=== PATIENT | female | born 1950 | race Caucasian/White ===

== ENCOUNTER 2019-12-30 01:16 | Observation (INO) ==
[2019-12-30] MEDS ORDERED: Ondansetron 4 MG/2 ML VIAL IVP PRN (06:01)
[2019-12-30] MEDS ORDERED: Naloxone 0.4 MG/ML INJ IVP PRN (06:01)
[2019-12-30] MEDS ORDERED: Acetaminophen 325 MG TABLET PO PRN (06:01)
[2019-12-30] MEDS ORDERED: Ipratropium/Albuterol Neb 3 ML IH PRN (07:18)
[2019-12-30 08:18] LABS: Basophils % 0.1 %; Eosinophils # 0.1 K/mcL (0.0-0.6); Eosinophils % 0.8 %; Hemoglobin 16.1 g/dL (11.5-15.4); Immature Granulocytes % 0.4 % (0-4); Lymphocytes # 1.2 K/mcL (0.6-4.6); Lymphocytes % 13.9 %; Mean Corpuscular HGB Conc 32.9 g/dL (31.6-35.5); Mean Corpuscular Hemoglobin 33.1 pg (28.0-33.3); Mean Corpuscular Volume 100.6 fL (83.0-100.0); Mean Platelet Volume 9.3 fL (9.4-12.4); Monocytes # 0.7 K/mcL (0.0-1.3); Monocytes % 7.4 %; Neutrophils # 6.9 K/mcL (1.6-8.9); Platelet Count 184 K/mcL (140-400); Red Blood Count 4.87 M/mcL (3.82-4.97); Segmented Neutrophils % 77.4 %; White Blood Count 8.9 K/mcL (4.3-11.1)
[2019-12-30 08:37] LABS: BUN/Creatinine Ratio 24 (6-26); Blood Urea Nitrogen 17 mg/dL (8-23); Carbon Dioxide 30 mEq/L (23-29); Chloride 101 mEq/L (98-107); Glucose 70 mg/dL (70-105); Osmolality,Calculated 292 (280-300); Potassium 3.1 mEq/L (3.5-5.1); Sodium 141 mEq/L (136-145); eGFR For African Americans > 60 (> 60); eGFR For Non-African Americans > 60 (> 60)
[2019-12-30] MEDS ORDERED: *HR* HYDROcodone/Acet 5/325 mg TABLET PO PRN (10:04)
[2019-12-30] MEDS: amLODIPine 5 MG TABLET PO SCH ×2 (11:38→11:39)
[2019-12-30] MEDS ORDERED: Isosorbide MONOnitrate (24 HR) 60 MG TAB.ER.24H PO SCH (14:45)
[2019-12-30] MEDS: Furosemide 40 MG TABLET PO SCH (15:58)
[2019-12-30] MEDS: *HR* Heparin 5,000 UNIT/ML VIAL SQ SCH ×2 (15:58→21:44)
[2019-12-30] MEDS: predniSONE 10 MG TABLET PO SCH ×2 (15:58→21:49)
[2019-12-30 17:54] LABS: Bilirubin,Urine Negative (Negative); Blood,Urine Negative (Negative); Clarity,Urine Cloudy (Clear); Color,Urine Yellow (Yellow); Glucose,Urine (UA) Normal (Normal); Ketones,Urine Negative (Negative); Leukocyte Esterase,Urine Small (Negative); Nitrite,Urine Positive (Negative); PH,Urine 6.5 pH Units (5.0-8.0); Protein,Urine Negative (Neg-Trace); Specific Gravity,Urine 1.017 (1.010-1.025); Urobilinogen,Urine Normal (Normal)
[2019-12-30 17:57] LABS: Hyaline Casts,Urine Few per lpf (None-Few); RBC,Urine 0-3 per hpf (0-3)
[2019-12-30 18:28] LABS: Bacteria,Urine Many per hpf (None-Few); Squamous Epithelial Cell,Urine Moderate per lpf (None-Few)
[2019-12-30] MEDS: Sennosides/Docusate Sodium TABLET PO SCH (19:00)
[2019-12-31 01:29] LABS: Basophils % 0.2 %; Eosinophils % 0.1 %; Hemoglobin 16.2 g/dL (11.5-15.4); Immature Granulocytes % 0.6 % (0-4); Lymphocytes # 0.7 K/mcL (0.6-4.6); Lymphocytes % 7.7 %; Mean Corpuscular HGB Conc 34.5 g/dL (31.6-35.5); Mean Corpuscular Hemoglobin 33.1 pg (28.0-33.3); Mean Corpuscular Volume 96.1 fL (83.0-100.0); Mean Platelet Volume 9.3 fL (9.4-12.4); Monocytes # 0.5 K/mcL (0.0-1.3); Monocytes % 5.8 %; Neutrophils # 7.8 K/mcL (1.6-8.9); Platelet Count 216 K/mcL (140-400); Red Blood Count 4.89 M/mcL (3.82-4.97); Segmented Neutrophils % 85.6 %; White Blood Count 9.1 K/mcL (4.3-11.1)
[2019-12-31 01:45] LABS: BUN/Creatinine Ratio 25 (6-26); Blood Urea Nitrogen 19 mg/dL (8-23); Calcium 9.1 mg/dL (8.6-10.3); Carbon Dioxide 26 mEq/L (23-29); Chloride 101 mEq/L (98-107); Glucose 125 mg/dL (70-105); Magnesium 1.8 mg/dL (1.6-2.6); Osmolality,Calculated 288 (280-300); Potassium 3.7 mEq/L (3.5-5.1); Sodium 137 mEq/L (136-145); eGFR For African Americans > 60 (> 60); eGFR For Non-African Americans > 60 (> 60)
[2019-12-31] MEDS: *HR* Heparin 5,000 UNIT/ML VIAL SQ SCH (05:56)
[2019-12-31] MEDS ORDERED: Isosorbide MONOnitrate (24 HR) 30 MG TAB.ER.24H PO SCH (09:00)
[2019-12-31] MEDS ORDERED: NON-FORMULARY MEDICATION 1 EACH EACH (Fluconazole [Diflucan] 200 MG) PO SCH (09:00)
[2019-12-31] MEDS ORDERED: Fluticasone Propionate Nasal 50 MCG/SPRAY BOTTLE NS SCH (09:00)
[2019-12-31] MEDS: predniSONE 10 MG TABLET PO SCH (09:40)
[2019-12-31] MEDS: Furosemide 40 MG TABLET PO SCH (09:40)
[2019-12-31] MEDS: Sennosides/Docusate Sodium TABLET PO SCH (09:40)
[2019-12-31] MEDS: amLODIPine 5 MG TABLET PO SCH (09:40)
[2019-12-31 11:55] VITALS: BP 155/93
[2019-12-31] MEDS ORDERED: Bisacodyl 10 MG RECTAL SUPPOSITORY RC ONE (12:45)
== END 2019-12-31 15:51 ==
LOC: 3BNU → SUATTDRO 03:25
PROVIDERS: ADMIT Pharmacist; ATTEND Internal Medicine

== ENCOUNTER 2020-06-23 21:27 | Observation (INO) ==
[2020-06-24 02:01] LABS: Adenovirus Not Detected (Not Detect); Bordetella Pertussis Not Detected (Not Detect); Chlamydophila pneumoniae Not Detected (Not Detect); Coronavirus 229E Not Detected (Not Detect); Coronavirus HKU1 Not Detected (Not Detect); Coronavirus NL63 Not Detected (Not Detect); Coronavirus OC43 Not Detected (Not Detect); Human Metapneumovirus Not Detected (Not Detect); Human Rhinovirus/Enterovirus Not Detected (Not Detect); Influenza A Subtype 2009 H1 Not Detected (Not Detect); Influenza B Not Detected (Not Detect); Mycoplasma pneumoniae Not Detected (Not Detect); Parainfluenza Virus 1 Not Detected (Not Detect); Parainfluenza Virus 2 Not Detected (Not Detect); Parainfluenza Virus 3 Not Detected (Not Detect); Parainfluenza Virus 4 Not Detected (Not Detect); Respiratory Syncytial Virus Not Detected (Not Detect)
[2020-06-24] MEDS ORDERED: Naloxone 0.4 MG/ML INJ IVP PRN (03:25)
[2020-06-24 03:34] LABS: Basophils % 0.2 %; Eosinophils # 0.1 K/mcL (0.0-0.6); Eosinophils % 0.8 %; Hematocrit 28.5 % (35.3-44.9); Hemoglobin 8.6 g/dL (11.5-15.4); Immature Granulocytes % 0.5 % (0-4); Lymphocytes # 1.9 K/mcL (0.6-4.6); Mean Corpuscular HGB Conc 30.2 g/dL (31.6-35.5); Mean Corpuscular Hemoglobin 28.5 pg (28.0-33.3); Mean Corpuscular Volume 94.4 fL (83.0-100.0); Mean Platelet Volume 9.2 fL (9.4-12.4); Monocytes # 0.6 K/mcL (0.0-1.3); Monocytes % 6.8 %; Platelet Count 433 K/mcL (140-400); Red Blood Count 3.02 M/mcL (3.82-4.97); Red Cell Distribution Width 14.6 % (11.5-14.5); Segmented Neutrophils % 69.7 %; White Blood Count 8.5 K/mcL (4.3-11.1)
[2020-06-24 03:43] LABS: INR 1.1; Prothrombin Time 12.6 Seconds (9.4-12.1)
[2020-06-24 03:46] LABS: Activated Partial Thrombo Time 30.6 Seconds (26.0-36.0)
[2020-06-24 03:59] LABS: Alanine Aminotransferase 10 Units/L (7-52); Alkaline Phosphatase 105 Units/L (34-104); Aspartate Amino Transferase 12 Units/L (13-39); BUN/Creatinine Ratio 14 (6-26); Bilirubin,Total 0.3 mg/dL (0.3-1.0); Blood Urea Nitrogen 12 mg/dL (8-23); Calcium 8.3 mg/dL (8.6-10.3); Carbon Dioxide 24 mEq/L (23-29); Chloride 106 mEq/L (98-107); Glucose 73 mg/dL (70-105); Osmolality,Calculated 282 (280-300); Phosphorous 3.2 mg/dL (2.7-4.5); Potassium 3.2 mEq/L (3.5-5.1); Sodium 137 mEq/L (136-145); Troponin I 0.07 ng/mL (< 0.04); eGFR For African Americans > 60 (> 60); eGFR For Non-African Americans > 60 (> 60)
[2020-06-24] MEDS ORDERED: Potassium Chloride 40 MEQ, Lidocaine 1% 2 ML in 0.9 % Sodium Chloride 500 ML IVPB ONE (04:42)
[2020-06-24] MEDS ORDERED: Perflutren Lipid Microsphere 1.3 ML in 0.9 % Sodium Chloride 8.7 ML IVP PRN (04:57)
[2020-06-24] MEDS ORDERED: *HR* Promethazine 25 MG/ML VIAL IVP PRN (05:06)
[2020-06-24] MEDS ORDERED: Acetaminophen 325 MG TABLET PO PRN (05:06)
[2020-06-24] MEDS: Pantoprazole 40 MG VIAL IVP SCH ×2 (05:16→18:23)
[2020-06-24] MEDS: 0.9 % Sodium Chloride 1,000 ML IVC SCH ×2 (05:22→16:39)
[2020-06-24] MEDS ORDERED: Gadolinium Contrast Agent (WT Based) IV PRN (09:06)
[2020-06-24 10:45] LABS: Hematocrit 30.7 % (35.3-44.9); Hemoglobin 9.1 g/dL (11.5-15.4)
[2020-06-24] MEDS: Nicotine 14 MG PATCH.TD24 TD SCH (15:56)
[2020-06-24] MEDS ORDERED: SODIUM CHLORIDE/NAHCO3/KCL/PEG 4,000 ML SOLN.RECON PO ONE (17:00)
[2020-06-24 17:22] LABS: Hematocrit 29.7 % (35.3-44.9); Hemoglobin 8.9 g/dL (11.5-15.4)
[2020-06-24 17:25] LABS: Immature Reticulocyte % 39.7 % (11.0-38.0); Retculocyte # 0.04 M/mcL (0.05-0.10); Reticulocyte % 1.2 % (1.6-2.8)
[2020-06-24 17:43] LABS: % Iron Saturation 7 % (15-50); Iron 21 mcg/dL (50-170); Lactate Dehydrogenase 155 Units/L (140-271); Transferrin 226 mg/dL (203-362)
[2020-06-24 17:58] LABS: Ferritin 72 ng/mL (10-120)
[2020-06-24] MEDS: levETIRAcetam 250 MG TABLET PO SCH (21:27)
[2020-06-24] MEDS: Pregabalin 75 MG CAPSULE PO SCH (21:28)
[2020-06-25 01:09] LABS: Hematocrit 26.8 % (35.3-44.9); Hemoglobin 7.9 g/dL (11.5-15.4)
[2020-06-25 03:26] LABS: Basophils % 0.3 %; Eosinophils # 0.1 K/mcL (0.0-0.6); Eosinophils % 1.3 %; Hematocrit 29.8 % (35.3-44.9); Hemoglobin 8.7 g/dL (11.5-15.4); Immature Granulocytes % 0.5 % (0-4); Lymphocytes # 1.7 K/mcL (0.6-4.6); Lymphocytes % 17.6 %; Mean Corpuscular HGB Conc 29.2 g/dL (31.6-35.5); Mean Corpuscular Hemoglobin 27.3 pg (28.0-33.3); Mean Corpuscular Volume 93.4 fL (83.0-100.0); Mean Platelet Volume 8.9 fL (9.4-12.4); Monocytes # 0.7 K/mcL (0.0-1.3); Monocytes % 7.2 %; Neutrophils # 6.9 K/mcL (1.6-8.9); Platelet Count 432 K/mcL (140-400); Red Blood Count 3.19 M/mcL (3.82-4.97); Red Cell Distribution Width 14.6 % (11.5-14.5); Segmented Neutrophils % 73.1 %; White Blood Count 9.5 K/mcL (4.3-11.1)
[2020-06-25 03:50] LABS: BUN/Creatinine Ratio 10 (6-26); Blood Urea Nitrogen 7 mg/dL (8-23); Calcium 7.8 mg/dL (8.6-10.3); Carbon Dioxide 21 mEq/L (23-29); Chloride 113 mEq/L (98-107); Glucose 66 mg/dL (70-105); Osmolality,Calculated 290 (280-300); Potassium 3.5 mEq/L (3.5-5.1); Sodium 142 mEq/L (136-145); eGFR For African Americans > 60 (> 60); eGFR For Non-African Americans > 60 (> 60)
[2020-06-25] MEDS: Pantoprazole 40 MG VIAL IVP SCH ×2 (05:17→18:16)
[2020-06-25] MEDS: amLODIPine 5 MG TABLET PO SCH (08:22)
[2020-06-25] MEDS: levETIRAcetam 250 MG TABLET PO SCH ×2 (08:22→20:51)
[2020-06-25] MEDS: Isosorbide MONOnitrate (24 HR) 30 MG TAB.ER.24H PO SCH (08:23)
[2020-06-25] MEDS: Nicotine 14 MG PATCH.TD24 TD SCH (08:24)
[2020-06-25] MEDS: Pregabalin 75 MG CAPSULE PO SCH ×2 (08:24→20:09)
[2020-06-25] MEDS ORDERED: predniSONE 10 MG TABLET PO SCH (09:00)
[2020-06-25] MEDS ORDERED: NON-FORMULARY MEDICATION 1 EACH EACH (Pantoprazole Sodium [Protonix] 20 MG) PO SCH (09:00)
[2020-06-25] MEDS ORDERED: *HR* FentaNYL (PF) 100 MCG/2 ML VIAL ONE (12:43)
[2020-06-25] MEDS ORDERED: Ondansetron 4 MG/2 ML VIAL ONE ×2 (12:43→13:09)
[2020-06-25] MEDS ORDERED: Lidocaine -MPF 2% 2 ML VIAL ONE (12:43)
[2020-06-25] MEDS ORDERED: *HR* Midazolam HCl 2 MG/2 ML VIAL ONE (12:43)
[2020-06-25] MEDS ORDERED: *HR* Propofol 200 MG/20 ML VIAL IVP ONE (12:43)
[2020-06-25] MEDS ORDERED: Dexamethasone 4 MG/ML VIAL ONE ×2 (12:43→13:09)
[2020-06-26 00:49] LABS: Platelet Count 372 K/mcL (140-400); Red Cell Distribution Width 14.6 % (11.5-14.5)
[2020-06-26 00:50] LABS: Hematocrit 26.3 % (35.3-44.9); Hemoglobin 7.7 g/dL (11.5-15.4); Mean Corpuscular HGB Conc 29.3 g/dL (31.6-35.5); Mean Corpuscular Hemoglobin 28.1 pg (28.0-33.3); Mean Platelet Volume 9.3 fL (9.4-12.4); Red Blood Count 2.74 M/mcL (3.82-4.97); White Blood Count 8.4 K/mcL (4.3-11.1)
[2020-06-26 01:41] LABS: BUN/Creatinine Ratio 14 (6-26); Blood Urea Nitrogen 13 mg/dL (8-23); Calcium 7.8 mg/dL (8.6-10.3); Carbon Dioxide 19 mEq/L (23-29); Chloride 110 mEq/L (98-107); Glucose 203 mg/dL (70-105); Osmolality,Calculated 288 (280-300); Potassium 4.3 mEq/L (3.5-5.1); Sodium 136 mEq/L (136-145); eGFR For African Americans > 60 (> 60); eGFR For Non-African Americans 57 (> 60)
[2020-06-26] MEDS: Pantoprazole 40 MG VIAL IVP SCH (05:19)
[2020-06-26] MEDS: levETIRAcetam 250 MG TABLET PO SCH ×2 (08:27→20:12)
[2020-06-26] MEDS: Isosorbide MONOnitrate (24 HR) 30 MG TAB.ER.24H PO SCH (08:29)
[2020-06-26] MEDS: amLODIPine 5 MG TABLET PO SCH (08:29)
[2020-06-26] MEDS ORDERED: POTASSIUM CHLORIDE 10 MEQ PO SCH (09:00)
[2020-06-26] MEDS ORDERED: Isosorbide MONOnitrate (24 HR) 30 MG TAB.ER.24H PO SCH (09:00)
[2020-06-26] MEDS: Pregabalin 75 MG CAPSULE PO SCH ×2 (09:28→21:00)
[2020-06-26] MEDS: Nicotine 14 MG PATCH.TD24 TD SCH (09:28)
[2020-06-26] MEDS: Furosemide 40 MG TABLET PO SCH (09:31)
[2020-06-26] MEDS: Iron Sucrose Complex 200 MG in 0.9 % Sodium Chloride 100 ML IVPB SCH (09:31)
[2020-06-26] MEDS: predniSONE 10 MG TABLET PO SCH ×3 (11:05→17:15)
[2020-06-26] MEDS ORDERED: *HR* LORazepam 2 MG/ML VIAL IVP ONE (14:10)
[2020-06-27 01:28] LABS: Hematocrit 28.7 % (35.3-44.9); Hemoglobin 8.4 g/dL (11.5-15.4); Mean Corpuscular HGB Conc 29.3 g/dL (31.6-35.5); Mean Corpuscular Hemoglobin 27.5 pg (28.0-33.3); Mean Corpuscular Volume 94.1 fL (83.0-100.0); Mean Platelet Volume 9.3 fL (9.4-12.4); Platelet Count 410 K/mcL (140-400); Red Blood Count 3.05 M/mcL (3.82-4.97); Red Cell Distribution Width 14.6 % (11.5-14.5); White Blood Count 10.3 K/mcL (4.3-11.1)
[2020-06-27 01:49] LABS: Calcium 8.3 mg/dL (8.6-10.3); Potassium 4.4 mEq/L (3.5-5.1)
[2020-06-27 02:13] LABS: Folate 5.8 ng/mL (3.0-16.0)
[2020-06-27] MEDS: Pregabalin 75 MG CAPSULE PO SCH (08:30)
[2020-06-27] MEDS: amLODIPine 5 MG TABLET PO SCH (08:30)
[2020-06-27] MEDS: levETIRAcetam 250 MG TABLET PO SCH (08:31)
[2020-06-27] MEDS: Furosemide 40 MG TABLET PO SCH (08:31)
[2020-06-27] MEDS: Nicotine 14 MG PATCH.TD24 TD SCH (08:31)
[2020-06-27] MEDS: predniSONE 10 MG TABLET PO SCH (08:31)
[2020-06-27] MEDS: Isosorbide MONOnitrate (24 HR) 30 MG TAB.ER.24H PO SCH (08:31)
[2020-06-27] MEDS: Iron Sucrose Complex 200 MG in 0.9 % Sodium Chloride 100 ML IVPB SCH (08:47)
[2020-06-27 10:55] VITALS: BP 147/87
[2020-06-29] MEDS ORDERED: Ergocalciferol (VIT D2) 50,000 UNIT (1.25MG) CAP PO SCH (08:14)
[2020-06-29] MEDS ORDERED: Cholecalciferol (D-3) 1,000 UNIT (25MCG) TABLET PO SCH (11:14)
== END 2020-06-27 11:33 | disposition home or self-care (01) ==
LOC: CDU → 3BNU 06-24 02:55
PROVIDERS: ADMIT Student in an Organized Health Care Education/Training Program; ATTEND Student in an Organized Health Care Education/Training Program
PROC: ENDOEBX (2020-06-25 13:00)